=== PATIENT | female | born 1950 | race Caucasian/White ===

== ENCOUNTER 2023-09-20 05:58 | Day surgery (SDC) | payer MEDICARE, OTHER, SELFPAY ==
[2023-09-20 11:20] VITALS: BMI 29.1
[2023-09-20 11:39] VITALS: BP 142/77; BMI 29.1
[2023-09-20 13:37] VITALS: BP 132/90
[2023-09-20 13:47] VITALS: BP 118/70
[2023-09-20 14:00] VITALS: BP 122/68
== END 2023-09-20 14:05 | disposition home or self-care (01) ==
LOC: GI 05:58
PROVIDERS: ATTENDING PHYSICIAN Internal Medicine Gastroenterology
DX: Z12.11 Encounter for screening for malignant neoplasm of colon (principal); D12.2 Benign neoplasm of ascending colon; K57.30 Diverticulosis of large intestine without perforation or abscess without bleeding; K64.0 First degree hemorrhoids; Z86.010 Personal history of colon polyps; Z98.890 Other specified postprocedural states; Z98.0 Intestinal bypass and anastomosis status
CPT/HCPCS: 45385; 45380; 88305

== ENCOUNTER → 2023-10-05 12:09 | Outpatient (REF) | payer MEDICARE, OTHER, SELFPAY | LOC: HWWDC 12:09 | PROVIDERS: ATTENDING PHYSICIAN Physician Assistant Medical | DX: Z12.31 Encounter for screening mammogram for malignant neoplasm of breast (principal) | CPT/HCPCS: 77063; 77067 ==

== ENCOUNTER → 2023-10-12 07:44 | Outpatient (REF) | payer MEDICARE, OTHER, SELFPAY | LOC: HWRAD 07:44 | PROVIDERS: ATTENDING PHYSICIAN Internal Medicine Gastroenterology; FAMILY PHYSICIAN Physician Assistant Medical | DX: R10.9 Unspecified abdominal pain (principal) | CPT/HCPCS: 76700 ==

== ENCOUNTER → 2024-04-23 13:20 | Outpatient (REF) | payer MEDICARE, OTHER, SELFPAY | LOC: HWRAD 13:20 | PROVIDERS: ATTENDING PHYSICIAN Physician Assistant Medical | DX: M54.2 Cervicalgia (principal) | CPT/HCPCS: 72052 ==

== ENCOUNTER → 2024-10-27 10:43 | Outpatient (REF) | payer MEDICARE, OTHER, SELFPAY | LOC: HWWDC 10:43 | PROVIDERS: ATTENDING PHYSICIAN Physician Assistant Medical; REFERRING PHYSICIAN Obstetrics & Gynecology | DX: Z12.31 Encounter for screening mammogram for malignant neoplasm of breast (principal) | CPT/HCPCS: 77063; 77067 ==

== ENCOUNTER → 2024-11-27 12:25 | Outpatient (REF) | payer MEDICARE, OTHER, SELFPAY | LOC: RCS 12:25 | PROVIDERS: ATTENDING PHYSICIAN Internal Medicine; FAMILY PHYSICIAN Physician Assistant Medical | DX: R06.02 Shortness of breath (principal); R07.9 Chest pain, unspecified; R42 Dizziness and giddiness | CPT/HCPCS: 78452; 93017; A9500; J2785 ==

== ENCOUNTER → 2024-11-28 08:02 | Outpatient (REF) | payer MEDICARE, OTHER, SELFPAY | LOC: RCS 08:02 | PROVIDERS: ATTENDING PHYSICIAN Internal Medicine; FAMILY PHYSICIAN Physician Assistant Medical | DX: R06.02 Shortness of breath (principal); R07.9 Chest pain, unspecified; R42 Dizziness and giddiness | CPT/HCPCS: 93306 ==

== ENCOUNTER 2025-01-07 06:17 | Day surgery (SDC) | payer MEDICARE, OTHER, SELFPAY ==
[2025-01-07 08:55] VITALS: BMI 30.7
[2025-01-07 08:56] VITALS: BMI 30.7
[2025-01-07 08:58] VITALS: BP 127/89
[2025-01-07 11:00] VITALS: BP 113/98
[2025-01-07 11:15] VITALS: BP 136/84
[2025-01-07 11:30] VITALS: BP 119/62
== END 2025-01-07 11:56 | disposition home or self-care (01) ==
LOC: SDS 06:17
PROVIDERS: ATTENDING PHYSICIAN Internal Medicine Gastroenterology
DX: Z12.11 Encounter for screening for malignant neoplasm of colon (principal); D12.2 Benign neoplasm of ascending colon; K57.30 Diverticulosis of large intestine without perforation or abscess without bleeding; K64.0 First degree hemorrhoids; Z86.0101 Personal history of adenomatous and serrated colon polyps; Z98.890 Other specified postprocedural states; Z98.0 Intestinal bypass and anastomosis status
CPT/HCPCS: 45385; 88305

== ENCOUNTER 2025-01-09 07:29 | Day surgery (SDC) | payer MEDICARE, OTHER, SELFPAY ==
[2025-01-09] VITALS (8 sets, daily range): BP systolic 101–157; BP diastolic 53–80; BMI 30.9
[2025-01-09] MEDS: NSS 248 ML IV (08:18)
[2025-01-09] MEDS: LOW STRENGTH ASPIRIN 324 MG PO (08:18)
--- NOTE | 2025-01-09 10:11 | ITS.CL.PN ---
[employer] - Procedure Note
Procedure
Procedure Note:
CARDIAC CATHETERIZATION REPORT
Date of Procedure: 01/09/2025
Referring: Dr. Cortez Beckford MD
Indication: anginal chest pain
PROCEDURE(S)
1. left heart catheterization
2. coronary angiography
ACCESS: 6F right radial artery (closure: radial band)
CATHETERS
1. 6F JR4
2. 6F JL3.5
MODERATE SEDATION: 25 minutes of moderate sedation was utilized. An independent pediatrician/medical doctor was present to assist with and help manage the patient's level of consciousness and physiologic status.
HEMODYNAMIC DATA
LV 110/12 (EDP 21) mmHg
AO 111/61 (mean 80) mmHg
CORONARY ANGIOGRAPHY
Dominance: right
LM: Large, short
LAD: Large vessel giving rise to a small D1 and large D2. There are trivial luminal irregularities only.
LCx: Large vessel giving rise to a single large OM. There are trivial luminal irregularities only.
RCA: Large vessel giving rise to a small RPDA and several small RPL branches. There are trivial luminal irregularities only.
RADIATION: dose 177 mGy; DAP 10.9 Gy*cm2; fluoroscopy time 2.5 min
CONCLUSIONS
1. Minimal coronary artery disease in a right dominant system
2. Mildly elevated LV filling pressure no aortic stenosis
RECOMMENDATIONS
1. Primary prevention of coronary artery disease
2. Workup for etiology of chest pain not related to epicardial coronary artery disease
Copy to: Dr. Cortez Beckford MD (senior sql server developer); ROSEMARIE Santana (PCP)
Signed: Karel Tirado MD, PhD
== END 2025-01-09 12:45 | disposition home or self-care (01) ==
LOC: CATH 07:29
PROVIDERS: ATTENDING PHYSICIAN Student in an Organized Health Care Education/Training Program; FAMILY PHYSICIAN Physician Assistant Medical; REFERRING PHYSICIAN Internal Medicine
DX: I25.119 Atherosclerotic heart disease of native coronary artery with unspecified angina pectoris (principal); I10 Essential (primary) hypertension; E78.2 Mixed hyperlipidemia; E03.9 Hypothyroidism, unspecified; G47.33 Obstructive sleep apnea (adult) (pediatric); Z79.82 Long term (current) use of aspirin
CPT/HCPCS: 99152; 99153; C1769; C1894; 93458; Q9967

== ENCOUNTER → 2025-02-13 13:36 | Outpatient (REF) | payer MEDICARE, OTHER, SELFPAY | LOC: HWRAD 13:36 | PROVIDERS: ATTENDING PHYSICIAN Physician Assistant Medical | DX: R07.89 Other chest pain (principal) | CPT/HCPCS: 71046 ==

== ENCOUNTER → 2025-04-09 08:33 | Outpatient (REF) | payer MEDICARE, OTHER, SELFPAY | LOC: HWRAD 08:33 | PROVIDERS: ATTENDING PHYSICIAN Obstetrics & Gynecology; FAMILY PHYSICIAN Physician Assistant Medical | DX: M81.0 Age-related osteoporosis without current pathological fracture (principal) | CPT/HCPCS: 77080 ==